=== PATIENT | male | born 1990 | race American Indian/Alaskan Native ===

== ENCOUNTER 2017-03-31 18:20 | Emergency (ER) | payer SELFPAY ==
[2017-03-31] MEDS ORDERED: Ibuprofen TAB* 800 MG PO ONE (22:58)
[2017-04-01] MEDS ORDERED: HYDROcodone/ACETAMIN 5-325 MG* 1 TAB PO ONE (00:10)
--- NOTE | 2017-04-01 00:30 | ED ---
Lower Extremity - HPI Summary HPI Summary: Pt here w/ Lt knee twisting injury earlier today. H/o having meniscus removed here - has had issues w/ his knees for a while. He does [employer] for a living and so is kneeling all the time. Today was throwing heavy items in a twisting fashion nad twisted his knee. [place] a pop. Denies numbness, tingling, weakness - just has pain within his knee, more notably along medial aspect. Feels he cannot move his knee from flexed position. Can move ankle and toes. Cannot bear weight. Used meloxicam in the past w/ good results. Today has tried ice alternating with heat - reports heat feels better than ice. - History of Current Complaint Chief Complaint: EDExtremityLower Stated Complaint: LEFT KNEE INJURY Time Seen by Provider: 03/31/17 20:15 Hx Obtained From: Patient, Family/Forestry Aid Technician - female partner Pain Intensity: 10 - Allergies/Home Medications Allergies/Adverse Reactions: Allergies Allergy/AdvReac Type Severity Reaction Status Date / Time No Known Allergies Allergy Verified 03/31/17 18:25 PMH/Surg Hx/FS Hx/Imm Hx Previously Healthy: Yes Endocrine/Hematology History: Denies: Hx Anticoagulant Therapy, Hx Blood Disorders Musculoskeletal History: Reports: Hx Arthritis - per pt, B/L knees Infectious Disease History: No Infectious Disease History: Denies: Traveled Outside the [place] in Last 30 Days - Family History Known Family History: Positive: Cardiac Disease - Social History Occupation: Employed Full-time - [employer] Lives: With Family Alcohol Use: Weekly Substance Use Type: Reports: Marijuana - for knee pain Hx Tobacco Use: Yes Smoking Status (MU): Current Every Day Smoker Amount Used/How Often: 1/2 PPD Review of Systems Positive: no symptoms reported Musculoskeletal: Other - see HPI Skin: Negative Neurological: Negative Psychological: Normal All Other Systems Reviewed And Are Negative: Yes Physical Exam Triage Information Reviewed: Yes Vital Signs On Initial Exam: Initial Vitals Temp Pulse Resp BP Pulse Ox 97.9 F 87 16 137/80 98 03/31/17 18:25 03/31/17 18:25 03/31/17 18:25 03/31/17 18:25 03/31/17 18:25 Vital Signs Reviewed: Yes Appearance: Positive: Well-Appearing, Well-Nourished, Pain Distress - mild to moderate Skin: Positive: Warm, Dry - no erythema, no ecchymosis over affected area Head/Face: Positive: Normal Head/Face Inspection Eyes: Positive: EOMI ENT: Positive: Hearing grossly normal Respiratory/Lung Sounds: Positive: Breath Sounds Present Cardiovascular: Positive: Normal, Pulses are Symmetrical in both Upper and Lower Extremities Musculoskeletal: Positive: Limited @ - Lt knee in a 10 degrees of flexion position - pt reports pain upon moving out of this position - better if performed gently; FROM ankle, hip and toes w/o pain; special tests w/ questionable meniscal injury/ACL injury as he has pain w/ anterior drawer and modified Tao- no bertram laxity (some gaurding) - no bertram deformity, edema nor effusion, Other. Negative: Strength/ROM Intact, Pain @ - Lt Knee is NTTP, Edema Left, Edema Right Neurological: Positive: Normal, Sensory/Motor Intact, Alert, Oriented to Person Place, Time, CN Intact II-III Psychiatric: Positive: Normal Diagnostics - Vital Signs Vital Signs Temp Pulse Resp BP Pulse Ox 03/31/17 20:37 98.2 F 62 18 172/81 100 03/31/17 18:25 97.9 F 87 16 137/80 98 - Laboratory Lab Statement: Any lab studies that have been ordered have been reviewed, and results considered in the medical decision making process. Lower Extremity Course/Dx - Diagnoses Provider Diagnoses: Right knee sprain Discharge - Discharge Plan Condition: Stable Disposition: HOME Prescriptions: Meloxicam(NF) [Mobic(NF)] 15 mg PO DAILY #7 tab Patient Education Materials: Knee Sprain (ED), Crutch Instructions (ED) Forms: *Work Release Referrals: [facility] PHYSICIAN REFERRAL [Outside] Non Staff,Doctor [Primary Care Provider] - Additional Instructions: Rest, ice, elevate May alternate with heat after 48 hours Do not bear weight for 48 hours - use crutches and may try weight bearing as tolerated Take ibuprofen OR aleve OR meloxicam - do NOT take all of them as they are in the same class of drugs and can be dangerous to mix. You may alternate any of these medications with acetaminophen. You may also try topical analgesics such as briofreeze, bengay, etc Follow-up with PCP for recheck. *If same or worse after 1-2 weeks, follow-up with orthopedics
[2017-04-01 00:38] VITALS: BP 138/75
--- NOTE | 2017-04-01 07:46 | RAD ---
HISTORY: Left knee pain COMPARISONS: None VIEWS: 5, Frontal, lateral, axial, and oblique views of the left knee FINDINGS: BONE DENSITY: Normal. BONES: There is no displaced fracture. JOINTS: There is no arthropathy. There is no suprapatellar joint effusion or lipohemarthrosis. ALIGNMENT: There is no dislocation. SOFT TISSUES: Unremarkable. OTHER FINDINGS: None. IMPRESSION: NO ACUTE OSSEOUS INJURY. IF SYMPTOMS PERSIST, RECOMMEND REPEAT IMAGING.
== END 2017-04-01 00:39 | disposition home or self-care (01) ==
LOC: ED 18:20
DX: S83.91XA Sprain of unspecified site of right knee, initial encounter (principal); X50.9XXA Other and unspecified overexertion or strenuous movements or postures, initial encounter; Y93.9 Activity, unspecified; Y92.9 Unspecified place or not applicable; Y99.9 Unspecified external cause status; F17.210 Nicotine dependence, cigarettes, uncomplicated
CPT/HCPCS: 99282; A9270-GY

== ENCOUNTER 2019-05-31 20:47 | Emergency (ER) | payer SELFPAY ==
[2019-05-31 21:00] VITALS: BP 151/90
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
--- NOTE | 2019-06-01 07:15 | UC ---
- Progress Note Progress Note: Per Dr. Capellan, there is a non-displaced rib fracture of the 10th rib. Please call patient to advise of this finding. This can take 4 to 6 weeks to heal, and will need a follow up visit if he is unable to return to work. Course/Dx - Diagnoses Provider Diagnoses: Contusion of rib on left side Discharge ED - Sign-Out/Discharge Documenting (check all that apply): Patient Departure All imaging exams completed and their final reports reviewed: Yes - Discharge Plan Condition: Good Disposition: HOME Patient Education Materials: Rib Contusion (ED) Forms: *Work Release Referrals: [facility] [Outside] No Primary Care Phys,NOPCP [Primary Care Provider] - Additional Instructions: May apply ice or heat to the sore area which ever feels good. May take Tylenol every 4 hours and ibuprofen every 8 hours for pain. Follow-up with your primary care provider or [facility] if no improvement in 2 or 3 days. Avoid movements that cause pain. We will call you with the x-ray results if there is any change than what we told you qasim. - Billing Disposition and Condition Condition: GOOD Disposition: Home
== END 2019-05-31 21:45 | disposition home or self-care (01) ==
LOC: UCEAST 20:47
DX: S20.211A Contusion of right front wall of thorax, initial encounter (principal); Z87.891 Personal history of nicotine dependence; Y04.0XXA Assault by unarmed brawl or fight, initial encounter; Y92.9 Unspecified place or not applicable
CPT/HCPCS: 99212; G0463

== ENCOUNTER 2019-10-10 05:46 | Day surgery (SDC) | payer BC ==
--- NOTE | 2019-10-06 07:32 | HP ---
PREOPERATIVE HISTORY AND PHYSICAL: DATE OF ADMISSION/SURGERY: 10/10/19 DATE OF OFFICE VISIT: 10/05/19 ATTENDING SURGEON: Dr. Wilfredo Childers.* (DICTATED BY JOSE MARIA SCHAFFER) PROCEDURE: Left knee arthroscopic surgery. CHIEF COMPLAINT: Left knee. HISTORY OF PRESENT ILLNESS: Harvinder is a 28-year-old male who presents to the clinic for followup of his left knee pain that he has had for several years due to a displaced medial meniscus tear. He has failed conservative measures and has therefore agreed to undergo a left knee arthroscopic surgery with Dr. Childers on 10/10/19. PAST MEDICAL HISTORY: ADHD, depression, anxiety. PAST SURGICAL HISTORY: [place] tooth removal. The patient denies prior complications with anesthesia. MEDICATIONS: 1. Meloxicam 7.5 mg 1 tab twice a day for pain. 2. Hydrocodone/acetaminophen 5/325 one to two every 6 to 8 hours as needed for pain. 3. Adderall 30 mg 1 daily. 4. Escitalopram 10 mg 1 daily. 5. Black elderberry 575 mg 1 daily. ALLERGIES: No known drug allergies. FAMILY HISTORY: Positive for hypertension and cancer. Denies family history of DVT or PE. SOCIAL HISTORY: He lives alone. He works in the [employer]. He quit smoking 2 years ago. He consumes about 10 alcoholic beverages a week. He exercises regularly on the treadmill. REVIEW OF SYSTEMS: A 14-point review of systems was reviewed with the patient. Positive for current complaint, otherwise negative. Denies fever, chills, chest pain, shortness of breath, history of bleeding disorder, history of DVT or PE. Denies history of hepatitis C or HIV. No seizure disorders, heart attack , or stroke. PHYSICAL EXAMINATION GENERAL: A 28-year-old well-developed, well-nourished male, in no acute distress. VITAL SIGNS: Height 70.5, weight 249, pulse 72, blood pressure 140/84, respiratory rate 12, temperature 97.1, BMI 35.2. HEENT: Normocephalic, atraumatic. PERRLA. Throat clear. NECK: Supple. PULMONARY: Lungs are clear to auscultation bilaterally. No wheezing, rhonchi, or rales. CARDIO: Regular rate and rhythm. S1, S2. No murmurs, gallops, or rubs. No edema. No bruits. ABDOMEN: Positive bowel sounds. Soft, nontender. NEURO: Alert and oriented x3. Cranial nerves grossly intact. MUSCULOSKELETAL: Left lower extremity: Skin is intact. No warmth or erythema. No effusion. Range of motion 0 to 125. External rotation of his leg produces medial knee discomfort. Stable to varus and valgus stress. Stable Farhad. Negative posterior drawer. Medial joint line tenderness. Calf soft, nontender. +5/5 strength to ankle dorsiflexion and plantarflexion. +2 DP pulse. Sensation intact to light touch distally. DIAGNOSTIC STUDIES: Prior MRI of the left knee revealed displaced tearing of the medial meniscus. IMPRESSION: Left knee meniscus tear. PLAN: The patient is scheduled to undergo a left knee arthroscopic surgery with Dr. Childers on 10/10/19. The patient has hydrocodone at home that he will use for postop pain management. He will follow up 10 to 14 days postop for followup and suture removal. The risk and complication sheet was reviewed with the patient. The patient signed the paper and it has been scanned into the chart. JOSE MARIA SCHAFFER [id number]/[facility] #: [id number] JOSE MIGUEL
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
[~2019-10-10 05:46] MED LIST: Buffered Lidocaine 1% SYRIN* 1 ML/SYRINGE INTRADERM ONE
[2019-10-10] MEDS ORDERED: Dexamethasone IV* 4 MG/ML 1 ML (4 MG) ONE (05:59)
[2019-10-10] MEDS ORDERED: Famotidine IV* 10 MG/ML 2 ML (20 mg) ONE (05:59)
[2019-10-10] MEDS ORDERED: ceFAZolin 2 GM in NS PREMIX(*) 2 GM/100 ML BAG IVPB ONE (05:59)
[2019-10-10] MEDS ORDERED: Lactated Ringers 1000 ML Bag* 1,000 ML IV SCH (06:00)
[2019-10-10] MEDS ORDERED: Dexamethasone IV* 4 MG/ML 1 ML (4 MG) IV SLOW PU ONE (06:00)
[2019-10-10] MEDS ORDERED: Famotidine IV* 10 MG/ML 2 ML (20 mg) IV ONE (06:00)
[2019-10-10] MEDS ORDERED: Lidocaine 1% w EPI 1:100,000* MDV 20 ML VIAL ONE (07:11)
[2019-10-10] MEDS ORDERED: DiMENhydriNATE IV* 50 MG/ML VIAL IV PUSH PRN (07:18)
[2019-10-10] MEDS ORDERED: Naloxone* 0.4 MG/ML 1 ML VIAL IV PRN (07:18)
[2019-10-10] MEDS ORDERED: fentaNYL* 50 MCG/ML 2 ML VIAL (100 MCG VIAL) ONE ×5 (07:21→11:26)
[2019-10-10] MEDS ORDERED: KETAMINE HCL* 50 MG/ML 10 ML VIAL ONE (07:21)
[2019-10-10] MEDS ORDERED: Midazolam* 1 MG/ML 2 ML VIAL (2 MG) ONE (07:21)
[2019-10-10] MEDS ORDERED: Ketorolac INJ* 30 MG/ML 1 ML VIAL ONE (07:23)
[2019-10-10] MEDS ORDERED: Ondansetron INJ* 2 MG/ML VIAL ONE (07:23)
[2019-10-10] MEDS ORDERED: Propofol* 10 MG/ML 20 ML BTL ONE (07:23)
[2019-10-10] MEDS: fentaNYL* 50 MCG/ML 2 ML VIAL (100 MCG VIAL) IV PRN ×5 (09:04→11:27)
[2019-10-10 11:10] VITALS: BP 126/73
--- NOTE | 2019-10-10 14:13 | OP ---
DATE OF OPERATION: 10/10/19 - [facility] DATE OF : 89 SURGICAL CARE: Left knee. SURGEON: Wilfredo Childers MD. ANESTHESIOLOGIST: Dr. Flaco Worthy. ANESTHESIA: LMA, general. PRE-OP DIAGNOSIS: Left knee medial meniscal tear. 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 OPERATIVE PROCEDURE: Left knee arthroscopic chondroplasty of the patella and partial medial meniscectomy. COMPLICATIONS: There were no complications. DRAINS: There were no drains. TOURNIQUET: Tourniquet control was utilized. ESTIMATED BLOOD LOSS: 20 mL. REPLACEMENT: Crystalloid fluids. OPERATIVE INDICATION: Knee pain with locking episodes and this has been going on for 6 years. Recent MRI showed displaced medial meniscus tear. DESCRIPTION OF PROCEDURE: The patient was brought to the operating room and placed on the operating room table in a supine position. Following the administration of the anesthetic, the left lower extremity was wrapped with the proximal thigh tourniquet and the leg was prepped from the tourniquet to the foot and then draped free and carefully sealed off in usual fashion for arthroscopic surgery of the knee. We did our universal protocol time-out confirming Harvinder Robles and a plan for left knee arthroscopic surgery. We all agreed and we proceeded. The leg was exsanguinated, the tourniquet elevated to 275. The knee was set up for an arthroscopy with the arthroscope lateral to the patellar tendon, probe and operating instruments medial to the patellar tendon, and an inflow catheter superomedial to the patella. The initial irrigation of the joint showed a slight amount of debris. The survey of the joint showed that the patient had an area of chondromalacia of patella, mid patella, about a dime-sized area and this was shaved smooth. The medial and lateral gutters were clean except in the medial gutter, at the periphery of the medial meniscus, the torn meniscus was evident with displaced flap fragment. There was a large displaced anterior flap into the intracondylar notch. The posterior flap was coming forth from the intracondylar notch on the lateral side of the ACL. Once the pathology was evident, I proceeded with the chondroplasty of the patella. The anterior flap of the medial meniscus was grasped. The anterior horn was undone with basket scissor and shaver, and that was removed, and then the posterior horn, which remained displaced through the intracondylar notch was removed with shaver and basket, and suction punch. We took care to see that there was no fragments left in the posterior medial joints , the suction punch was utilized. Final photographs were obtained and the knee was then irrigated with another 4 L of saline irrigation solution, then emptied , and then instilled with Xylocaine 20 mL and the skin portal was closed with interrupted 3-0 Surgipro. A second portal was made medially for the second instrument to remove the anterior horn medial meniscus. The dressing was applied after washing and drying, Betadine-soaked release, sterile gauze, sterile Webril, cryotherapy cuff, ABD pads, and then a 6-inch Kirill bandage loosely applied. The patient was returned to the hospital stretcher into the recovery room in stable and satisfactory condition having tolerated the procedure very well. [id number]/[facility] #: [id number] MTDD
== END 2019-10-10 12:40 | disposition home or self-care (01) ==
LOC: OR 05:46
PROVIDERS: ATTEND Orthopaedic Surgery
DX: M23.204 Derangement of unspecified medial meniscus due to old tear or injury, left knee (principal); M22.42 Chondromalacia patellae, left knee; Z87.891 Personal history of nicotine dependence; F41.8 Other specified anxiety disorders; F90.9 Attention-deficit hyperactivity disorder, unspecified type; F41.9 Anxiety disorder, unspecified
CPT/HCPCS: 88304; J0690; J1100; J1885; J2250; J2405; J2704; J3010